=== PATIENT | female | born 1965 | race Caucasian/White ===

== ENCOUNTER → 2016-12-03 | Outpatient (CLI) | payer BC ==
[~2016-12-03] MED LIST: BACTRIM DS1 TAB PO; COLACE100 MG PO; LEVOTHROID (S125 MCG PO; OXYCODONE-ACET1 EAC1 PO; SYNTHROID137 MCG PO
[2016-12-03 14:28] LABS: ANION GAP 10.9 (10.0-19.0); CREATININE 1.1 mg/dL (0.5-1.1); POTASSIUM 3.9 mMol/L (3.7-5.1)
== END | disposition disaster alternative care site (69) ==
LOC: GLAB 13:36
PROVIDERS: Urology
DX: N20.0 Calculus of kidney (principal); N26.1 Atrophy of kidney (terminal); Q61.02 Congenital multiple renal cysts